=== PATIENT | female | born 1985 | race African-American/Black ===

== ENCOUNTER 2019-09-14 22:17 | Day surgery (SDC) | payer BC ==
[2019-09-14 22:30] VITALS: BMI 26.6
[2019-09-14] MEDS ORDERED: KETOROLAC TROMETHAMINE 15 MG/ML VIAL IVPUSH ONE (23:20)
--- NOTE | 2019-09-14 23:21 | PDOC ---
History of Present Illness - General Chief Complaint: Vaginal Bleeding Stated Complaint: VAGINAL BLEEDING Time Seen by Provider: 09/14/19 23:05 History Source: Patient Exam Limitations: No Limitations - History of Present Illness Travel History: No Initial Comments: 09/14/19 23:23 34y F M1 with no significant PMH presenting to ED for vaginal bleeding and pain due to miscarriage. Pt states she was around 10w and started bleeding 4d ago on Thursday with light spotting. She saw her OB 2d ago on Thursday and was told she was having a miscarriage. She states the bleeding got worse this morning and says she was using around 3-4 pads per hour and passing large tissue/clots. She says she is still passing clots but not as large as before and the bleeding is subsiding but says the pain is more intense. Denies fever, chills, n/v/d, chest pain, sob, headache. PMD: [place] OB: Dr. Argueta at [facility] PMH: none PSH: none Meds: none Allergies: nkda Past History - Past Medical History Allergies/Adverse Reactions: Allergies Allergy/AdvReac Type Severity Reaction Status Date / Time No Known Allergies Allergy Verified 09/14/19 22:30 Home Medications: Ambulatory Orders NK [No Known Home Medication] 09/15/19 CVA: No COPD: No - Psycho Social/Smoking Cessation Hx Smoking History: Never smoked Information on smoking cessation initiated: No Hx Alcohol Use: No Drug/Substance Use Hx: No Review of Systems - Review of Systems Constitutional: No: Symptoms Reported HEENTM: No: Symptoms Reported Respiratory: No: Symptoms reported Cardiac (ROS): No: Symptoms Reported ABD/GI: Yes: See HPI : Yes: See HPI Musculoskeletal: No: Symptoms Reported Integumentary: No: Symptoms Reported Neurological: No: Symptoms reported *Physical Exam - Vital Signs Last Vital Signs Temp Pulse Resp BP Pulse Ox 98.0 F 85 17 113/68 100 09/14/19 22:26 09/14/19 22:26 09/14/19 22:26 09/14/19 22:26 09/14/19 22:26 - Physical Exam General Appearance: Yes: Nourished, Appropriately Dressed, Mild Distress HEENT: positive: EOMI, Pale Conjunctivae Neck: positive: Trachea midline, Supple Respiratory/Chest: positive: Lungs Clear, Normal Breath Sounds. negative: Crackles, Rales, Rhonchi, Stridor, Wheezing Cardiovascular: positive: Regular Rhythm, Regular Rate, S1, S2. negative: E randall, JVD, Murmur Female Pelvic Exam: positive: other (refusing exam) Gastrointestinal/Abdominal: positive: Normal Bowel Sounds, Soft, Tenderness (sup rapubic. ). negative: Guarding, Rebound Musculoskeletal: negative: CVA Tenderness Extremity: positive: Normal Capillary Refill. negative: Pedal Edema, Swelling Integumentary: positive: Normal Color, Dry, Warm Neurologic: positive: information technology internship II-XII NML intact, Fully Oriented, Alert, Normal Mood/Affect, Normal Response, Motor Strength 11/07 ED Treatment Course - LABORATORY CBC & Chemistry Diagram: 09/15/19 06:15 09/14/19 23:30 - RADIOLOGY Radiology Studies Ordered: Category Date Time Status TRANSVAGINAL ULTRASOUND US [US] Stat Ultrasound 09/14/19 23:18 Stop Req Medical Decision Making - Medical Decision Making 09/14/19 23:20 34y F presenting with bleeding from miscarriage vitals wnl ddx includes complete v. incomplete v septic . -cbc, cmp, ts, bhcg, ua, ucx, tvus for retained products. -toradol for pain. pt refusing US and pelvic exam 09/15/19 00:28 pt showed outpt labs 09/12/2019 with hgb 11.5 pain is subsiding. pad patient had on arrival lasted 2 hours. hbg 10.5 beta 4800. 09/15/19 01:18 pain better controlled. pt having waves of cramps pending ua. rpt cbc at 0200. 09/15/19 02:47 ua negative for infection. hgb dropped to 9 from 10.5. will need admission for possible d&c. will call ic design engineer subway conductor (Rene) 09/15/19 03:[address] Gusman. Will not take pt to OR without images. Does not think patient requires admission at this time. will call pt's OB to discuss case. 09/15/19 03:[address] Argueta, will not be in office tomorrow. will get sono in the AM with rpt cbc. if dropping, pt will need D&C. rpt vitals. will sign out to day resident pending US, cbc and OB consult 09/15/19 06:36 pt is not hypotensive or tachycardic. cbc, coags and ts sent. has not gotten cxr or ekg...it is ordered but asked to place on hold, will complete if pt is getting admitted. 09/15/19 06:46 hgb 8.1. pt stating pain is minimal and bleeding is less than before. Discharge - Discharge Information Problems reviewed: Yes Clinical Impression/Diagnosis: Vaginal bleeding, Miscarriage Condition: Stable - Follow up/Referral Referrals: Fred Robbins [Primary Care Provider] - - Patient Discharge Instructions Patient Printed Discharge Instructions: DI for Miscarriage Additional Instructions: I recommend taking ibuprofen/Advil or Tylenol for the pain as needed. Please follow up with your OB. Please make sure you see them tomorrow. Come back to the ER if you continue to use 4-5 pads/hour, feel lightheaded, pass out or if any new or concerning symptom develops Thank you - Post Discharge Activity
[2019-09-14] MEDS ORDERED: SODIUM CHLORIDE 1,000 ML IV STA (23:31)
[2019-09-14 23:36] LABS: BASO % 0.3 % (0-2.0); EOS % 0.8 % (0-4.5); HEMATOCRIT 31.3 % (32.4-45.2); HEMOGLOBIN 10.5 GM/dL (10.7-15.3); LYMPH % 33.3 % (8-40); MCH 29.9 pg (25.7-33.7); MCHC 33.5 g/dl (32.0-36.0); MEAN CELL VOLUME 89.3 fl (80-96); MEAN PLT VOLUME 9.1 fl (7.5-11.1); NEUT % 58.6 % (42.8-82.8); PLATELET COUNT 208 K/MM3 (134-434); RBC 3.51 M/mm3 (3.60-5.2); RDW 14.1 % (11.6-15.6); WHITE BLOOD COUNT 4.4 K/mm3 (4.0-10.0)
[2019-09-14] MEDS ORDERED: KETOROLAC TROMETHAMINE 15 MG/ML VIAL ONE (23:50)
--- NOTE | 2019-09-14 23:55 | PDOC ---
Documentation entered by Negrita Nash SCRIBE, acting as scribe for Sulma Beal DO. Sulma Beal DO: This documentation has been prepared by the Charity brewster Brenda, SCRIBE, under my direction and personally reviewed by me in its entirety. I confirm that the documentation accurately reflects all work, treatment, procedures, and medical decision making performed by me. Attending Attestation - Resident Resident Name: Emily Ornelas - ED Attending Attestation I have performed the following: I have examined & evaluated the patient, The case was reviewed & discussed with the resident, I agree w/resident's findings & plan, Exceptions are as noted - HPI HPI: 09/14/19 23:19 The patient is a 34 year old female () 10 weeks , miscarrying, with no significant PMH who presents to the ED for vaginal bleeding. As per patient, she was told on Thursday (09/12/2019) that she was having a miscarriage. Patient notes that she already passed big clots, however the bleeding got heavy today where she was using 3-4 pads per hour. Patient states that throughout the day, the bleeding has decreased however her abdominal cramping has gotten progressively worse, prompting her arrival to the ED. Allergies: NKA PCP: [facility] - Physicial Exam PE: 09/14/19 23:23 GENERAL: Awake, alert, and fully oriented, in no acute distress HEAD: No signs of trauma EYES: PERRLA, EOMI, sclera anicteric, conjunctiva clear ENT: Auricles normal inspection, hearing grossly normal, nares patent, oropharynx clear without exudates. Moist mucosa NECK: Normal ROM, supple, no lymphadenopathy, JVD, or masses LUNGS: Breath sounds equal, clear to auscultation bilaterally. No wheezes, and no crackles HEART: Regular rate and rhythm, normal S1 and S2, no murmurs, rubs or gallops ABDOMEN: (+) Mild tenderness in superpubic region. Soft, nontender, normoactive bowel sounds. No guarding, no rebound. No masses EXTREMITIES: Normal range of motion, no edema. No clubbing or cyanosis. No cords, erythema, or tenderness NEUROLOGICAL: Cranial nerves II through XII grossly intact. Normal speech, normal gait SKIN: Warm, Dry, normal turgor, no rashes or lesions noted. - Medical Decision Making 09/14/19 23:53 a/p: 34yo female at 10 weeks gestation with vaginal bleeding -told thursday by her ENDOSCOPY RN that she is having a miscarriage -states heavy bleeding this afternoon that has slowed down, but now has cramping that is getting worse -pt denies feeling lightheaded, but concerned she is losing blood -will send labs, tvus- pt currently refusing ultrasound -will monitor and reassess -pain control, iv access 09/15/19 00:45 hgb 10.5 will repeat hgb in 4 hours pt refusing ultrasound 09/15/19 01:32 labs reviewed repeat h/h pending to ensure hgb doesnt drop
[2019-09-15 01:21] LABS: ALBUMIN 3.7 g/dl (3.4-5.0); BILIRUBIN,TOTAL 0.6 mg/dL (0.2-1); BLOOD UREA NITROGEN 4.6 mg/dL (7-18); CALCIUM 8.1 mg/dL (8.5-10.1); CREATININE 0.5 mg/dL (0.55-1.3); POTASSIUM 3.4 mmol/L (3.5-5.1); TOT PROT 6.8 g/dl (6.4-8.2)
[2019-09-15 01:24] LABS: EPI CELLS 0.9 /HPF (0-5/HPF); HYALINE CASTS 6 /lpf (0-8); URINE APPEARANCE CLEAR; URINE BACTERIA 0.5 /hpf (NEGATIVE); URINE BILIRUBIN NEGATIVE (NEGATIVE); URINE COLOR YELLOW; URINE GLUCOSE (UA) NEGATIVE (NEGATIVE); URINE KETONE NEGATIVE (NEGATIVE); URINE LEUK ESTERASE NEGATIVE (NEGATIVE); URINE NITRITE NEGATIVE (NEGATIVE); URINE PROTEIN TRACE (NEGATIVE); URINE RBC 950 /hpf (0-4); URINE UROBILINOGEN 0.2 mg/dL (0.2-1.0); URINE WBC 1 /hpf (0-5)
[2019-09-15 02:28] LABS: BASO % 0.2 % (0-2.0); EOS % 0.1 % (0-4.5); HEMATOCRIT 26.8 % (32.4-45.2); LYMPH % 9.1 % (8-40); MCHC 33.4 g/dl (32.0-36.0); MEAN CELL VOLUME 89.6 fl (80-96); MEAN PLT VOLUME 9.2 fl (7.5-11.1); MONO % 2.9 % (3.8-10.2); NEUT % 87.7 % (42.8-82.8); PLATELET COUNT 166 K/MM3 (134-434); RBC 2.99 M/mm3 (3.60-5.2); RDW 14.2 % (11.6-15.6); WHITE BLOOD COUNT 6.5 K/mm3 (4.0-10.0)
[2019-09-15] MEDS ORDERED: SODIUM CHLORIDE 1,000 ML IV STA (04:05)
[2019-09-15 06:31] LABS: BASO % 0.2 % (0-2.0); EOS % 0.2 % (0-4.5); HEMATOCRIT 23.5 % (32.4-45.2); HEMOGLOBIN 8.1 GM/dL (10.7-15.3); LYMPH % 17.9 % (8-40); MCH 30.6 pg (25.7-33.7); MCHC 34.4 g/dl (32.0-36.0); MEAN CELL VOLUME 88.9 fl (80-96); MEAN PLT VOLUME 9.6 fl (7.5-11.1); MONO % 3.9 % (3.8-10.2); NEUT % 77.8 % (42.8-82.8); PLATELET COUNT 177 K/MM3 (134-434); RBC 2.65 M/mm3 (3.60-5.2); RDW 14.4 % (11.6-15.6); WHITE BLOOD COUNT 6.2 K/mm3 (4.0-10.0)
[2019-09-15 07:11] LABS: INR 1.23 (0.83-1.09); PROTHROMBIN TIME (PATIENT) 14.6 SEC (9.7-13.0)
--- NOTE | 2019-09-15 07:12 | PDOC ---
*Physical Exam - Vital Signs Last Vital Signs Temp Pulse Resp BP Pulse Ox 98.3 F 81 18 102/68 100 09/15/19 05:00 09/15/19 05:00 09/15/19 05:00 09/15/19 05:00 09/15/19 05:00 ED Treatment Course - LABORATORY CBC & Chemistry Diagram: 09/15/19 06:15 09/14/19 23:30 - ADDITIONAL ORDERS Additional order review: Laboratory Results 09/15/19 09/14/19 09/14/19 00:05 23:30 23:30 Sodium Potassium Chloride Carbon Dioxide Anion Gap BUN Creatinine Est GFR (CKD-EPI)AfAm Est GFR (CKD-EPI)NonAf Random Glucose Calcium Total Bilirubin AST ALT Alkaline Phosphatase Total Protein Albumin Beta HCG, Quant Urine Color Yellow Urine Appearance Clear Urine pH 5.0 Ur Specific [place] 1.014 Urine Protein Trace Urine Glucose (UA) Negative Urine Ketones Negative Urine Blood 3+ H Urine Nitrite Negative Urine Bilirubin Negative Urine Urobilinogen 0.2 Ur Leukocyte Esterase Negative Urine WBC (Auto) 1 Urine RBC (Auto) 950 Urine Casts (Auto) 6 U Epithel Cells (Auto) 0.9 Urine Bacteria (Auto) 0.5 Blood Type A POSITIVE Cancelled Antibody Screen Negative Cancelled 09/14/19 23:30 Sodium 135 L Potassium 3.4 L Chloride 103 Carbon Dioxide 23 Anion Gap 9 BUN 4.6 L Creatinine 0.5 L Est GFR (CKD-EPI)AfAm 148.42 Est GFR (CKD-EPI)NonAf 128.06 Random Glucose 106 Calcium 8.1 L Total Bilirubin 0.6 AST 6 L ALT 15 Alkaline Phosphatase 36 L Total Protein 6.8 Albumin 3.7 Beta HCG, Quant 4867.9 Urine Color Urine Appearance Urine pH Ur Specific [place] Urine Protein Urine Glucose (UA) Urine Ketones Urine Blood Urine Nitrite Urine Bilirubin Urine Urobilinogen Ur Leukocyte Esterase Urine WBC (Auto) Urine RBC (Auto) Urine Casts (Auto) U Epithel Cells (Auto) Urine Bacteria (Auto) Blood Type Antibody Screen 09/15/19 09/15/19 09/14/19 06:15 02:20 23:30 RBC 2.65 L 2.99 L 3.51 L MCV 88.9 89.6 89.3 MCHC 34.4 33.4 33.5 RDW 14.4 14.2 14.1 MPV 9.6 9.2 9.1 Neutrophils % 77.8 87.7 H D 58.6 Lymphocytes % 17.9 D 9.1 D 33.3 Monocytes % 3.9 2.9 L 7.0 Eosinophils % 0.2 D 0.1 D 0.8 Basophils % 0.2 0.2 0.3 - Medications Given in the ED: ED Medications Discontinued Medications Generic Name Dose Route Start Last Admin Trade Name Jamila PRN Reason Stop Dose Admin Sodium Chloride 1,000 mls @ 1,000 mls/hr 09/14/19 23:31 09/15/19 00:01 Normal Saline - IV 09/15/19 00:30 1,000 mls/hr ASDIR STA Administration Sodium Chloride 1,000 mls @ 1,000 mls/hr 09/15/19 04:05 09/15/19 05:02 Normal Saline - IV 09/15/19 05:04 1,000 mls/hr ASDIR STA Administration Ketorolac Tromethamine 15 mg 09/14/19 23:20 09/14/19 23:52 Toradol Injection - IVPUSH 09/14/19 23:21 15 mg ONCE ONE Administration Medical Decision Making - Medical Decision Making 09/15/19 07:[address] Ornelas. Will f/u results of TVUS, consult OBGYN, likely admit. Discharge - Discharge Information Problems reviewed: Yes Clinical Impression/Diagnosis: Vaginal bleeding, Miscarriage Condition: Stable - Follow up/Referral Referrals: Fred Robbins [Primary Care Provider] - - Patient Discharge Instructions Patient Printed Discharge Instructions: DI for Miscarriage Additional Instructions: I recommend taking ibuprofen/Advil or Tylenol for the pain as needed. Please follow up with your OB. Please make sure you see them tomorrow. Come back to the ER if you continue to use 4-5 pads/hour, feel lightheaded, pass out or if any new or concerning symptom develops Thank you - Post Discharge Activity
[2019-09-15 07:14] LABS: ACTIVATED PTT 28.1 SECONDS (25.2-36.5)
[2019-09-15] MEDS ORDERED: KETOROLAC TROMETHAMINE 30 MG/1 ML VIAL IVPUSH ONE (08:11)
--- NOTE | 2019-09-15 10:27 | EKG ---
Test Reason : Blood Pressure : / mmHG Vent. Rate : 087 BPM Atrial Rate : 087 BPM P-R Int : 170 ms QRS Dur : 074 ms QT Int : 372 ms P-R-T Axes : 063 070 057 degrees QTc Int : 447 ms NORMAL SINUS RHYTHM WITH SINUS ARRHYTHMIA NORMAL ECG NO PREVIOUS ECGS AVAILABLE Confirmed by RHYS FRASER, RENEE ([id number]) on 09/15/2019 10:26:32 AM Referred By: Confirmed By:RENEE JOINER MD
[2019-09-15] MEDS ORDERED: ACETAMINOPHEN 1000 MG/100 ML VIAL (NON FORMULARY) IVPB ONE (11:57)
[2019-09-15] MEDS ORDERED: OXYTOCIN 20 UNITS in 0.9% NS 1000 ML INFUS.BAG IV ONE (12:08)
[2019-09-15 12:48] LABS: BASO % 0.2 % (0-2.0); EOS % 0.4 % (0-4.5); HEMOGLOBIN 7.9 GM/dL (10.7-15.3); LYMPH % 27.8 % (8-40); MCH 30.3 pg (25.7-33.7); MCHC 34.6 g/dl (32.0-36.0); MEAN CELL VOLUME 87.8 fl (80-96); MEAN PLT VOLUME 9.9 fl (7.5-11.1); NEUT % 67.6 % (42.8-82.8); PLATELET COUNT 149 K/MM3 (134-434); RBC 2.62 M/mm3 (3.60-5.2); RDW 14.1 % (11.6-15.6); WHITE BLOOD COUNT 4.3 K/mm3 (4.0-10.0)
[2019-09-15] MEDS ORDERED: ONDANSETRON 4 MG/2 ML VIAL IVPUSH PRN ×2 (22:06→22:42)
[2019-09-15] MEDS ORDERED: PROMETHAZINE HCL 25 MG/1 ML VIAL IVPUSH PRN (22:06)
--- NOTE | 2019-09-15 22:10 | HP ---
Past Medical History - Primary Care Physician PCP:: Bulmaro Medel - Admission Chief Complaint: vaginal bleeding, anemia, incomplete History of Present Illness: 34 yo f 10 weeks , passed product of conception . cont. to bleeding has drop Hb to 7 gm admitted for suction D&C , risks associated with procedure discussed , ulternatives and no tx discussed History Source: Patient Limitations to Obtaining History: No Limitations - Past Medical History Heme/Onc: Yes: Anemia - Past Surgical History Hx Myomectomy: No Hx Transabdominal Cerclage: No - Smoking History Smoking history: Never smoked - Alcohol/Substance Use Hx Alcohol Use: No - Social History Usual Living Arrangement: Yes: With Spouse History of Recent Travel: No Home Medications - Allergies Allergies/Adverse Reactions: Allergies Allergy/AdvReac Type Severity Reaction Status Date / Time No Known Allergies Allergy Verified 09/14/19 22:30 - Home Medications Home Medications: Ambulatory Orders NK [No Known Home Medication] 09/15/19 Review of Systems - Review of Systems Constitutional: reports: No Symptoms Eyes: reports: No Symptoms HENT: reports: No Symptoms Neck: reports: No Symptoms Cardiovascular: reports: No Symptoms Respiratory: reports: No Symptoms Genitourinary: reports: No Symptoms, Vaginal Bleeding Breasts: reports: No Symptoms Reported Musculoskeletal: reports: No Symptoms Integumentary: reports: No Symptoms Neurological: reports: Dizziness Hematology/Lymphatic: reports: No Symptoms Psychiatric: reports: No Symptoms Physical Exam-ROAD MACHINE OPERATOR Vital Signs: Vital Signs Temperature 99 F 09/15/19 18:45 Pulse Rate 80 09/15/19 18:45 Respiratory Rate 18 09/15/19 18:45 Blood Pressure 104/60 09/15/19 18:45 O2 Sat by Pulse Oximetry (%) 98 09/15/19 18:28 Constitutional: Yes: Well Nourished, No Distress, Calm, Pallor Eyes: Yes: Conjunctiva Clear, EOM Intact HENT: Yes: Atraumatic, Normocephalic Neck: Yes: Supple, Trachea Midline Cardiovascular: Yes: Regular Rate and Rhythm Respiratory: Yes: Regular Gastrointestinal: Yes: WNL Vaginal Exam: Yes: Bleeding Cervix: Yes: Other (os open with clot at the os) Uterus: Yes: Enlarged, Soft, Tender Breast(s): Yes: WNL Musculoskeletal: Yes: WNL Extremities: Yes: WNL Edema: No Integumentary: Yes: WNL Neurological: Yes: WNL, Alert, Oriented ...Motor Strength: WNL Psychiatric: Yes: WNL, Alert, Oriented Labs: CBC, BMP 09/15/19 12:23 09/14/19 23:30 Problem List - Problem (1) Incomplete Code(s): O03.4 - INCOMPLETE SPONTANEOUS WITHOUT COMPLICATION (2) Miscarriage Code(s): O03.9 - COMPLETE OR UNSP SPONTANEOUS WITHOUT COMPLICATION (3) Anemia Code(s): D64.9 - ANEMIA, UNSPECIFIED Qualifiers: Iron deficiency anemia type: chronic blood loss Assessment/Plan plan admit for suction D&C , risks explained
[2019-09-15] MEDS ORDERED: LACTATED RINGERS SOLUTION 1,000 ML IV SCH (22:15)
[2019-09-15] MEDS ORDERED: PROPOFOL 20 ML ONE (22:25)
[2019-09-15] MEDS ORDERED: MIDAZOLAM HCL 2 MG/2 ML SINGLE DOSE VIAL ONE (22:25)
[2019-09-15] MEDS ORDERED: LIDOCAINE HCL/PF 2% SDV 5ML VIAL ONE (22:26)
[2019-09-15] MEDS ORDERED: ceFAZolin SODIUM 1 GM VIAL IVPB ONE (22:33)
[2019-09-15] MEDS ORDERED: SODIUM CHLORIDE 0.9% P/F 10 ML VIAL IJ ONE (22:34)
[2019-09-15] MEDS ORDERED: ceFAZolin SODIUM 1 GM VIAL ONE (22:34)
[2019-09-15] MEDS ORDERED: oxyCODONE HCL 5 MG TABLET PO PRN (22:42)
[2019-09-15] MEDS ORDERED: IBUPROFEN 600 MG TABLET (FP) PO PRN (22:42)
[2019-09-15] MEDS ORDERED: IBUPROFEN 800 MG/8 ML IJ IVPB PRN (22:42)
[2019-09-15] MEDS ORDERED: ELECTROLYTE-148 SOLN 1,000 ML IV SCH (22:45)
[2019-09-15] MEDS ORDERED: OXYTOCIN 10 UNITS/ML VIAL ONE (22:48)
--- NOTE | 2019-09-15 23:05 | OP ---
Operative Note - Note: Operative Date: 09/15/19 Pre-Operative Diagnosis: incomplete Operation: suction D&C Findings: os open POC at the os Surgeon: Bulmaro Medel Anesthesiologist/MERCHANDISING CONSULTANT: Sadiq Galvan Anesthesia: General Specimens Removed: EMC, POC Estimated Blood Loss (mls): 50 Drains & Tubes with Location: none Operative Report Dictated: Yes
--- NOTE | 2019-09-15 23:52 | OP ---
DATE OF OPERATION: 09/15/2019 PREOPERATIVE DIAGNOSIS: Incomplete . POSTOPERATIVE DIAGNOSIS: Incomplete . PROCEDURE: Suction dilation and curettage. SURGEON: Bulmaro Medel MD. ANESTHESIA: General. ANESTHESIOLOGIST: Sadiq Galvan MD. ESTIMATED BLOOD LOSS: 50 mL. OPERATION: Patient was taken to operating room, had adequate general anesthesia, examination under anesthesia revealed external genitalia to be normal. Vagina was normal with some blood in the vault. Cervix was open with blood clots and appeared to be clot of conception at the os. Uterus enlarged, approximately 10 weeks' size and curetted. Adnexa, no masses were palpable. Then, with a weighted speculum in the vagina, anterior lip of the cervix was grasped with a single-toothed tenaculum. Uterine cavity was sounded to 10 cm. Then suction curet was inserted into endometrial cavity, and the contents were suctioned. Patient tolerated procedure well, left the OR in good condition. BULMARO MEDEL M.D. [id number]
[2019-09-16 08:01] LABS: HEMATOCRIT 21.1 % (32.4-45.2); HEMOGLOBIN 7.2 GM/dL (10.7-15.3); MCH 30.5 pg (25.7-33.7); MCHC 34.3 g/dl (32.0-36.0); MEAN PLT VOLUME 9.6 fl (7.5-11.1); PLATELET COUNT 154 K/MM3 (134-434); RBC 2.36 M/mm3 (3.60-5.2); RDW 14.4 % (11.6-15.6); WHITE BLOOD COUNT 2.7 K/mm3 (4.0-10.0)
--- NOTE | 2019-09-16 08:16 | PN ---
Progress Note (short form) - Note Progress Note: pod 1 s/p suction d/c , no dizziness , no vaginal bleeding , ambulating CBC, BMP 09/14/19 23:30 Last Vital Signs Temp Pulse Resp BP Pulse Ox 98.3 F 83 18 90/44 L 100 09/16/19 06:00 09/16/19 06:00 09/16/19 06:00 09/16/19 06:00 09/16/19 00:00 abdomen sof, non tender , no cva no vaginal bleeding plan d/c home, cont iron , vit if dizziness , heavy vaginal bleeding call MD Problem List - Problems (1) Incomplete Code(s): O03.4 - INCOMPLETE SPONTANEOUS WITHOUT COMPLICATION (2) Miscarriage Code(s): O03.9 - COMPLETE OR UNSP SPONTANEOUS WITHOUT COMPLICATION (3) Anemia Code(s): D64.9 - ANEMIA, UNSPECIFIED Qualifiers: Iron deficiency anemia type: chronic blood loss
[2019-09-16 09:43] VITALS: BP 112/72; PULSE 96; TEMP 98.1
== END 2019-09-16 10:24 | disposition home or self-care (01) ==
LOC: JER 22:17 → JASUSAT 09-15 02:48 → JER 09-15 05:01 → J6S 09-15 18:33 → JASUSAT 09-16 10:24
PROVIDERS: ATTEND Obstetrics & Gynecology
PROC: 3E0333Z Introduction of Anti-inflammatory into Peripheral Vein, Percutaneous Approach (ICD-10-PCS; 2019-09-15)
PROC: 3E0337Z Introduction of Electrolytic and Water Balance Substance into Peripheral Vein, Percutaneous Approach (ICD-10-PCS; 2019-09-15)
PROC: 3E0333Z Introduction of Anti-inflammatory into Peripheral Vein, Percutaneous Approach (ICD-10-PCS; 2019-09-15)
PROC: 3E033NZ Introduction of Analgesics, Hypnotics, Sedatives into Peripheral Vein, Percutaneous Approach (ICD-10-PCS; principal; 2019-09-15 22:13)
DX: O03.9 Complete or unspecified spontaneous abortion without complication (principal); O03.4 Incomplete spontaneous abortion without complication; D64.9 Anemia, unspecified
CPT/HCPCS: 36415; 76830-TC; 80053; 81003; 84702; 85025; 85027; 85610; 85730; 86850; 86900; 86901; 87086; 93005; 93010; 99285-25; J0131; J7030